=== PATIENT | female | born 1990 | race Caucasian/White ===

== ENCOUNTER → 2023-01-12 16:05 | Outpatient (BNVA) | payer MEDICAID, SELFPAY | PROVIDERS: Family Provider Nurse Practitioner; PCP Nurse Practitioner Family; Visit Provider Nurse Practitioner Family | DX: L98.9 Disorder of the skin and subcutaneous tissue, unspecified (principal) | CPT/HCPCS: 88304 ==

== ENCOUNTER → 2023-10-05 10:06 | Outpatient (BNVA) | payer MEDICAID, SELFPAY | PROVIDERS: Family Provider Nurse Practitioner; PCP Nurse Practitioner Family; Visit Provider Nurse Practitioner Family | DX: R10.9 Unspecified abdominal pain (principal); R19.7 Diarrhea, unspecified | CPT/HCPCS: 74018 ==

== ENCOUNTER 2023-11-27 09:43 | Day surgery (SDC) | payer MEDICAID, SELFPAY ==
[2023-11-27] VITALS (14 sets, daily range): BP systolic 105–163; BP diastolic 74–105; PULSE 66–78; RESP 12–21; TEMP 36.1–36.6; O2SAT 94–99; BMI 37.3
--- NOTE | 2023-11-27 09:50 | W.PM.OPSUD ---
Surgery/Procedure H&P Update DATE OF PROCEDURE: November 27, 2023 DATE H&P PERFORMED: 11/15/23 H&P UPDATE INFORMATION: I have reviewed H&P completed within last 30 days, I have examined patient prior to procedure and No changes to prior documentation PLANNED PROCEDURE: Operation Date: 11/27/23 11:30 Proposed Procedures p Laparoscopic Incisional Hernia Repair with mesh 00058, K 43.2(Not Applicable) - Vimal Rothman DO
[2023-11-27] MEDS: sodium chloride 0.9% 1,000 ML 30 ML IV (10:03)
--- NOTE | 2023-11-27 10:21 | ANES.PREANE2 ---
Pre-Anesthetic Assessment Height/Weight: Height 1.83 m Weight 124.738 kg Temp Pulse Resp BP Pulse Ox O2 Del Method 97.0 F L 69 18 143/96 99 Room Air 11/27/23 09:55 11/27/23 09:55 11/27/23 09:55 11/27/23 09:55 11/27/23 09:55 11/27/23 09:56 Operation Date: 11/27/23 11:30 Proposed Procedures p Laparoscopic Incisional Hernia Repair with mesh 72440, K 43.2(Not Applicable) - Vimal Rothman DO Familial anesthetic complications: None Was Beta Shira taken within 24 hours: N/A Was Clonidine taken within 24 hours: N/A Last intake: Intake Last Liquid Date 11/26/23 Last Liquid Time 23:59 Last Solid Date 11/26/23 Last Solid Time 17:00 Social Tobacco and No alcohol Exam alert, oriented x 3, clear to auscultation bilaterally and regular rate & rhythm Airway Mallampati: Class II Dentition: other (front tooth is half fake ) Metabolic Morbid Obesity Anesthetic Plan ASA status: 2 Anesthesia: General Risk of > 500 ml blood loss (7ml/kg in children): No Medications/Allergies Home Medications Medication Instructions Recorded Confirmed Last Taken Type buspirone 10 mg tablet 10 mg PO BID #180 tabs 08/14/23 11/26/23 11/26/23 Rx sertraline 50 mg tablet (Zoloft) 50 mg PO DAILY #90 tabs 08/14/23 11/26/23 11/26/23 Rx Allergies Allergy/AdvReac Type Severity Reaction Status Date / Time No Known Allergies Allergy Unverified 11/15/23 13:32 Current Medications Generic Name Dose Route Start Last Admin Trade Name Freq PRN Reason Stop Dose Admin Sodium Chloride 1,000 mls @ 30 mls/hr 11/27/23 10:00 11/27/23 10:03 Sodium Chloride 0.9% IV 11/28/23 09:59 30 mls/hr .Q24H JAMES Administration PFSH Anesthesia Medical History (Updated 11/15/23 @ 14:50 by Vimal Rothman DO) Incisional hernia Social History Smoking and tobacco/nicotine status: current every day tobacco/nicotine user (1 PPD) Female Reproductive History Date of last menstrual period: 11/19/23 Data Anesthesia Cardiac Studies: No Data to Display
[2023-11-27] MEDS: ceFAZolin 2,000 mg SDV 2000 MG IVP (10:43)
[2023-11-27] MEDS: BUPivacaine 0.25% INJ 10 mL INJECTION (11:18)
[2023-11-27] MEDS: lidocaine-epi 2% PF 1:200,000 20 mL SDV XX (11:19)
--- NOTE | 2023-11-27 11:41 | PM.OP ---
Operative Report Date of procedure: November 27, 2023 Pre-op diagnosis: Incisional hernia Post-op diagnosis: same Procedure done: Laparoscopic repair of incisional hernia with mesh Implants: 11 cm round Ventralight mesh Specimens removed/disposition: Hernia sac Surgeon: Vimal Rothman DO Anesthesia: General and Local Estimated blood loss (mL): 5 Complications: None apparent Brief History: This is a very pleasant 33-year-old female who presented to my office with an incisional hernia. Laparoscopic repair with mesh was indicated. The risks and benefits were explained and documented. Procedure: Patient was wheeled into the operative room and placed on the OR table in a supine position. Abdomen was inspected prepped and draped in usual sterile fashion. Time-out was performed and all present were in agreement. A 15 blade scalp was used to make a stab incision left upper quadrant. A Veress needle was placed into the incision and intra-abdominal insufflation was brought to 15 millimeters of mercury. A 5 mm trocar was placed in the right upper quadrant. A 12 millimeter trocar was placed into the right lower quadrant. The energy but device was then used to cut out the hernia sac of an incisional hernia in the left lower quadrant that measured 3.2 cm in diameter. An 11 cm round Ventralight mesh was placed into the abdomen and brought up through the center of the hernia defect using an the Lucas-Natty. The mesh was then tacked in place in a double crown fashion. The skeleton of the mesh was removed via the left lower quadrant. The hernia sac was then removed from the abdomen via the left lower quadrant. The right lower quadrant port site was closed with an 0 Vicryl suture in a Lucas-Natty in a [id number] fashion. Incisions were closed with 4 O Vicryl in a subcuticular interrupted fashion. Skin glue was applied. A dressing that included cotton balls and a Tegaderm was placed over the umbilicus. Patient tolerated the procedure well.
[2023-11-27] MEDS: HYDROmorphone 1 mg/mL INJ 1 mL 0.5 MG IVP ×2 (11:53→12:03)
[2023-11-27] MEDS: ondansetron 2 mg/ML SDV 2 mL 4 MG IVP (11:57)
[2023-11-27] MEDS: HYDROcodone-acetaminophen 7.5-325 mg Tablet 1 TAB PO (12:31)
--- NOTE | 2023-11-27 13:15 | ANE.PACU2 ---
Inpatient post-anesthesia follow up: Airway intact: Yes Vital signs: Temperature 97.6 F Pulse Rate 78 Respiratory Rate 17 Blood Pressure 129/88 Pulse Oximetry 95 Oxygen Delivery Me thod Room Air Oxygen Flow Rate Fraction of Inspir ed Oxygen Hydration adequate: Yes Nausea and vomiting: No Pain level: 1 Mental status: Baseline
[2023-11-28 10:35] LABS: OR HCG Qualitative Urine Negative (Negative)
== END 2023-11-27 13:15 | disposition home or self-care (01) ==
PROVIDERS: Anesthesiology; PCP Nurse Practitioner Family; Visit Provider Surgery
PROC: 0WQF4ZZ Repair Abdominal Wall, Percutaneous Endoscopic Approach (ICD-10-PCS; CPT 49593; principal; 2023-11-27 11:30)
DX: K43.2 Incisional hernia without obstruction or gangrene (principal); E66.01 Morbid (severe) obesity due to excess calories; Z68.37 Body mass index [BMI] 37.0-37.9, adult; F17.200 Nicotine dependence, unspecified, uncomplicated
CPT/HCPCS: 49593; 81025; 88302; C1781; J0690; J1100; J1170; J2405; J2704; J3010; J3490; J7030